=== PATIENT | male | born 1945 | race Caucasian/White ===

== ENCOUNTER → 2017-06-22 | Outpatient (CLI) | payer OTHER ==
[~2017-06-22] MED LIST: ALPR-411 PO; AMLO2.5T PO; AMPH20TA2 PO; AMPH30TA2 PO; AMT24 PO; ASPEC325 PO; DICL1GEL12 TOP; FENT100D10 TOP; GLC500 PO; GLIM4TAB2 PO; LINA1TAB PO; MULT-506 PO; OXYCODONE PO; PRLSR20 PO; RXC30 PO; [UNRECOGNIZED DRUG - OTHER] PO
[2017-06-22 16:01] LABS: BLOOD UREA NITROGEN 53 mg/dl (7-18); GLUCOSE 245 mg/dl (70-99)
[2017-06-22 16:02] LABS: ALT/SGPT 18 U/L (12-78); BUN/CREATININE RATIO 26.5 (10-20); CALCIUM 9.3 mg/dl (8.5-10.1); CARBON DIOXIDE 28 mmol/L (21-32); CHLORIDE 104 mmol/L (98-107); POTASSIUM 4.8 mmol/L (3.5-5.1); SODIUM 137 mmol/L (136-145)
[2017-06-22 16:04] LABS: ALB/GLOB RATIO 0.9 (0.9-2); ALKALINE PHOSPHATASE 116 U/L (45-117); AST/SGOT 14 U/L (15-37)
[2017-06-23 07:02] LABS: ESTIMATED AVERAGE GLUCOSE 171 mg/dl; HA1C FLAG Normal (Normal)
== END ==
LOC: C.LAB 13:56
PROVIDERS: ATTEND Family Medicine
DX: E11.21 Type 2 diabetes mellitus with diabetic nephropathy (principal)

== ENCOUNTER 2017-07-15 05:12 | Inpatient (IN) | payer OTHER ==
[2017-06-22 14:23] VITALS: BMI 25.0
--- NOTE | 2017-06-22 15:00 | PAT Medication Instructions ---
Service Date Jun 22, 2017. Current Home Medication List Alprazolam (Xanax), 0.5 MG PO TID PRN for Anxiety Amlodipine (Norvasc), 2.5 MG PO HS Amphetamine-Dextroamphetamine 20MG (Adderall 20MG), 20 MG PO QPM Amphetamine-Dextroamphetamine 30MG (Adderall 30MG), 30 MG PO QAM Diclofenac Sodium (Topical) (Voltaren 1% Top Gel), 1 DOSE TOP UD PRN for Pain Fentanyl (Duragesic), 1 PATCH TOP Q36 PRN for Pain Glimepiride (Glimepiride), 1 TAB PO QAM Linagliptin (Tradjenta), 1 TAB PO QAM Lubiprostone (Amitiza), 24 MCG PO BID Metformin HCl (Metformin HCl), 500 MG PO HS Multivitamin (Multivitamin), 1 TAB PO QAM Omeprazole (Prilosec), 40 MG PO QAM [Fiber Mix], 1 DOSE PO DAILY PRN for Constipation [Oxycodone], 10 MG PO Q6 PRN for Pain Medication Instructions For Your Scheduled Surgery - Hold the following medications 24 hours prior to surgery: Diclofenac Sodium (Topical) (Voltaren 1% Top Gel), 1 DOSE TOP UD PRN for Pain - Hold the following medications 48 hours prior to surgery: Metformin HCl (Metformin HCl), 500 MG PO HS - Hold the following medications the morning of surgery: [Fiber Mix], 1 DOSE PO DAILY PRN for Constipation Multivitamin (Multivitamin), 1 TAB PO QAM Lubiprostone (Amitiza), 24 MCG PO BID Lubiprostone (Amitiza), 24 MCG PO BID Glimepiride (Glimepiride), 1 TAB PO QAM Linagliptin (Tradjenta), 1 TAB PO QAM Amphetamine-Dextroamphetamine 30MG (Adderall 30MG), 30 MG PO QAM - Take the following medications the morning of surgery with a sip of water: Alprazolam (Xanax), 0.5 MG PO TID PRN for Anxiety (if needed) [Oxycodone], 10 MG PO Q6 PRN for Pain (okay to take up to 4 hours prior to surgery if needed) Omeprazole (Prilosec), 40 MG PO QAM Fentanyl (Duragesic), 1 PATCH TOP Q36 PRN for Pain (avoid patch placement of surgery site area) - Take the following medications as scheduled the night before surgery: [Fiber Mix], 1 DOSE PO DAILY PRN for Constipation [Oxycodone], 10 MG PO Q6 PRN for Pain (if needed) Alprazolam (Xanax), 0.5 MG PO TID PRN for Anxiety (if needed) Lubiprostone (Amitiza), 24 MCG PO BID Amphetamine-Dextroamphetamine 20MG (Adderall 20MG), 20 MG PO QPM Amlodipine (Norvasc), 2.5 MG PO HS If you have any questions please call us at [phone] or [phone] or [phone]
[2017-06-22 15:55] LABS: BASO % 0.8 %; BASO ABS # 0.04 K/uL (0-0.2); COMPLETE YES; EOS % 3.6 %; HEMATOCRIT 33.8 % (42-52); IG% 0.4 %; LYMPH ABS # 1.44 K/uL (1.2-3.4); MEAN CELL VOLUME 84.9 fL (80-100); MEAN CORPUSCULAR HEMOGLOBIN 28.9 pg (25-34); MEAN PLATELET VOLUME 10.2 fL (7.4-10.4); MONO % 7.8 %; NEUT % 58.4 %; PLATELET COUNT 177 K/uL (130-400); RED BLOOD COUNT 3.98 M/uL (4.7-6.1); WHITE BLOOD COUNT 4.97 K/uL (4.8-10.8)
[2017-06-22 16:00] LABS: URINE APPEARANCE CLEAR (CLEAR); URINE BILIRUBIN NEG (NEG); URINE COLOR YELLOW; URINE NITRITE NEG (NEG); URINE SPECIFIC GRAVITY 1.024 (1.000-1.030); UROBILINOGEN NEG (NEG)
[2017-06-22 16:01] LABS: MANUAL MICROSCOPIC REQUIRED? NO; REVIEW REQ? NO
[2017-06-22 16:02] LABS: INR 0.9 (0.9-1.1); PROTHROMBIN TIME (PATIENT) 9.7 SECONDS (9.0-12.0)
--- NOTE | 2017-06-22 16:03 | DIAGNOSTIC IMAGING REPORT ---
TWO VIEW CHEST CLINICAL HISTORY: Preoperative examination.. FINDINGS: PA and lateral chest radiographs are obtained. No prior studies are available for comparison at the time of dictation. The heart is top normal for projection. There is atherosclerotic calcification of the thoracic aorta. Nonspecific interstitial thickening is noted. No airspace consolidation or pleural effusion is identified. There is no pneumothorax. The skeletal structures are osteopenic. Degenerative change is seen throughout the thoracic spine. IMPRESSION: No active disease in the chest. Electronically signed by: Willian Combs M.D. 06/22/2017 4:01 PM Dictated Date/Time: 06/22/2017 4:00 PM
--- NOTE | 2017-07-14 20:07 | HISTORY & PHYSICAL EXAMINATION ---
DATE OF ADMISSION: 07/15/2017 CHIEF COMPLAINT: Primary osteoarthritis of the right knee. HISTORY OF PRESENT ILLNESS: Armando is a pleasant 72-year-old male, who has been dealing with a several year history of bilateral knee pain with the right worse than the left. He has had multiple injections without any relief. After failing years of conservative treatment, he has elected to proceed with a right total knee arthroplasty. PAST MEDICAL HISTORY: Significant for type 2 diabetes, hypertension, kidney disease and liver disease. PAST SURGICAL HISTORY: Significant for 2hernia repairs, left hand and wrist surgery. ALLERGIES: None. MEDICATIONS: Include metformin 500 mg daily, Amitiza 24 mcg twice a day, Tradjenta 5 mg daily, glimepiride 4 mg daily, omeprazole 40 mg daily, fentanyl 100 mcg per hour every 36 hours patch, alprazolam 0.5 mg as needed, oxycodone 15 mg every 4 hours as needed, Adderall 30 mg daily and amlodipine 2.5 mg daily. FAMILY HISTORY: Noncontributory. SOCIAL HISTORY: He is . He rarely drinks. Denies any tobacco or IV drug use. He does little activity. REVIEW OF SYSTEMS: He complains of severe right knee pain. All other pertinent review of systems are negative. PHYSICAL EXAMINATION: GENERAL: He is awake, alert and oriented x3. He is in no apparent distress. He is very pleasant. HEENT: Pupils are equal, round and reactive to light. Extraocular motions are intact. Oral mucosa is pink and moist. HEART: Regular rate per radial pulse. LUNGS: Astrid symmetrically bilaterally with no audible breath sounds. ABDOMEN: Soft, nontender and nondistended. MUSCULOSKELETAL: On physical examination of the right knee there is significant bony hypertrophy bilaterally. He has slight varus deformity. He has tenderness to palpation over the medial joint line and crepitus that palpates with flexion and extension of the knee. He has no ligamentous instability. IMAGING DATA: X-rays four views of the right knee do show advanced osteoarthritis with complete collapse of the joint space, osteophyte formation and subchondral cyst. IMPRESSION: Advanced osteoarthritis of the right knee. PLAN: We will proceed with a Biomet Vanguard right total knee arthroplasty. Postoperatively, he will be started on aspirin for DVT prophylaxis and kept in the hospital for postoperative medical management. CHANCE
[~2017-07-15] VITALS: Ht 177.8 cm; Wt 81.2 kg
[2017-07-15] VITALS (10 sets, daily range): BP systolic 118–170; BP diastolic 75–93; PULSE 60–75; TEMP 36.1–36.7; O2SAT 94–100; Ht 177.8 cm; Wt 81.2 kg
[~2017-07-15 05:12] MED LIST changes: -ASPEC325 PO; -RXC30 PO
[2017-07-15] MEDS ORDERED: FAMOTIDINE 20 MG TAB PO SCH (06:00)
[2017-07-15] MEDS ORDERED: ACETAMINOPHEN 500 MG TAB PO SCH (06:00)
[2017-07-15] MEDS ORDERED: GABAPENTIN 300 MG CAP PO SCH (06:00)
[2017-07-15] MEDS ORDERED: LACTATED RINGER'S 1000ML IV SCH (06:00)
[2017-07-15] MEDS ORDERED: LACTATED RINGER'S 1000ML 1,000 ML IV SCH (06:00)
[2017-07-15] MEDS ORDERED: CEFAZOLIN 2000 MG/60 ML D5W 60 ML IV SCH (06:00)
[2017-07-15] MEDS ORDERED: ROPIVACAINE 5MG/ML 30 ML 150 MG, BUPIVACAINE/EPINEPHR 0.5% MPF 30 ML, KETOROLAC TROMETH... INFIL SCH ×7 (06:00)
[2017-07-15] MEDS ORDERED: ORTHO JOINT ANESTHETIC ONE (06:29)
[2017-07-15] MEDS ORDERED: BACITRACIN 50000 UNIT VIAL ONE (06:30)
[2017-07-15] MEDS ORDERED: BUPIVACAINE 0.5 % 5 MG/1 ML PF 10ML VIAL ONE (06:31)
[2017-07-15] MEDS ORDERED: BUPIVACAINE 0.25% 30 ML VIAL ONE (06:32)
[2017-07-15] MEDS ORDERED: MIDAZOLAM HCL 1 MG/ML 2ML VIAL ONE ×2 (06:33→08:19)
[2017-07-15] MEDS ORDERED: FENTANYL CITRATE INJ 50 MCG/1 ML 2 ML VIAL ONE (06:33)
[2017-07-15] MEDS ORDERED: PROPOFOL IV EMULSION 10 MG/ML 20 ML VIAL IV ONE (06:33)
[2017-07-15] MEDS ORDERED: ONDANSETRON INJ 2 MG/ML 2 ML VIAL ONE (06:33)
[2017-07-15] MEDS ORDERED: LIDOCAINE HCL 2% 2 ML VIAL (20MG/ML) ONE (06:33)
--- NOTE | 2017-07-15 06:40 | History & Physical Bridge Note ---
H&P Re-Evaluation Bridge Note: I have examined the patient, reviewed the History & Physical and in the interval since the performance of the History & Physical I have noted the following changes of clinical significance: No changes noted
[2017-07-15] MEDS: TRANEXAMIC ACID INJ 1,000 MG in SODIUM CHLORIDE 0.9% 100ML 100 ML IV SCH ×2 (06:45→09:47)
[2017-07-15] MEDS ORDERED: AMPHETAMINE ASP/SULF/DEXTRAMPH 10 MG TAB PO SCH (07:00)
[2017-07-15] MEDS ORDERED: ONDANSETRON INJ 2 MG/ML 2 ML VIAL IV PRN ×2 (08:00→08:45)
[2017-07-15] MEDS ORDERED: EpHEDrine SULFATE INJ 50 MG/ML AMP IV PRN (08:00)
[2017-07-15] MEDS ORDERED: ATROPINE SULFATE 0.1 MG/ML 5ML SYR IV PRN (08:00)
--- NOTE | 2017-07-15 08:40 | [facility] Post Operative Brief Note ---
Immediate Operative Summary Operative Date Jul 15, 2017. Pre-Operative Diagnosis Advanced Osteoarthritis Right Knee Post-Operative Diagnosis Advanced Osteoarthritis Right Knee Procedure(s) Performed Right Total Knee Arthroplasty Surgeon Dr. Kelly Unhairer Surgeon(s) GAEL Lizarraga Estimated Blood Loss 20 ml Findings as above Specimens A. Right Knee Bone and Tissue Complication(s) None Disposition Recovery Room / PACU
[2017-07-15] MEDS ORDERED: METOCLOPRAMIDE HCL INJ 5 MG/ML 2 ML VIAL IV PRN (08:45)
[2017-07-15] MEDS ORDERED: DEXTROSE 50% 50 ML SYR IV PRN (08:45)
[2017-07-15] MEDS ORDERED: SILVER SULFADIAZINE 1% CR 50 GM JAR EXT PRN (08:45)
[2017-07-15] MEDS ORDERED: ALPRAZOLAM 0.5 MG TAB PO PRN (08:45)
[2017-07-15] MEDS ORDERED: BISACODYL 10 MG SUPP PR PRN (08:45)
[2017-07-15] MEDS ORDERED: DC ALL PREVIOUSLY ORDERED DIABETES MEDS ONE (08:45)
[2017-07-15] MEDS ORDERED: GLUCOSE 40% GEL 15 GM TUBE PO PRN (08:45)
[2017-07-15] MEDS ORDERED: SOD PHOSPHATE/SOD BIPHOSPHATE ENEMA 132 ML BTL PR PRN (08:45)
[2017-07-15] MEDS ORDERED: GLUCAGON FOR INJ 1 MG VIAL SQ PRN (08:45)
[2017-07-15] MEDS ORDERED: MAGNESIUM HYDROXIDE SUSP 30 ML UDC PO PRN (08:45)
[2017-07-15] MEDS ORDERED: GLUCOSE 10 TABS/TUBE PO PRN (08:45)
[2017-07-15] MEDS ORDERED: MULTIVITAMIN TAB PO SCH (09:00)
--- NOTE | 2017-07-15 09:28 | DIAGNOSTIC IMAGING REPORT ---
RIGHT KNEE 1 OR 2 VIEWS ROUTINE CLINICAL HISTORY: Right knee degenerative joint disease. Arthroplasty. COMPARISON: Knee radiographs June 07, 2017. FINDINGS: Alignment of the total right knee arthroplasty is anatomic. There is no fracture or unexpected radiopaque foreign body. Drains and skin goeff are present. IMPRESSION: Expected findings following total right knee arthroplasty. Electronically signed by: Glalo Aguilera M.D. 07/15/2017 9:26 AM Dictated Date/Time: 07/15/2017 9:26 AM
[2017-07-15] MEDS ORDERED: PHARMACY GLYCEMIC MGMT CONSULT PRN (09:40)
--- NOTE | 2017-07-15 09:41 | Anesthesiology Progress Note ---
Anesthesia Post Op Note Date & Time Jul 15, 2017 at 09:40 Vital Signs Pain Intensity: 0 Vital Signs Past 12 Hours Date Time Temp Pulse Resp B/P (MAP) Pulse Ox O2 Delivery O2 Flow Rate FiO2 07/15/17 09:25 36.6 60 14 125/71 100 Nasal Cannula 2 07/15/17 09:15 60 15 126/77 98 Nasal Cannula 2 07/15/17 09:05 61 15 126/75 98 Nasal Cannula 2 07/15/17 08:58 36.4 64 15 143/82 98 Nasal Cannula 2 07/15/17 05:50 36.7 74 18 170/93 95 Room Air Notes Mental Status: alert / awake / arousable, participated in evaluation Pt Amnestic to Procedure: Yes Nausea / Vomiting: adequately controlled Pain: adequately controlled Airway Patency, RR, SpO2: stable & adequate BP & HR: stable & adequate Hydration State: stable & adequate Neuraxial Anesthesia: was administered, sensory block is resolving Anesthetic Complications: no major complications apparent
--- NOTE | 2017-07-15 10:01 | OPERATIVE REPORT ---
DATE OF OPERATION: 07/15/2017 PREOPERATIVE DIAGNOSIS: Primary osteoarthritis of the right knee. POSTOPERATIVE DIAGNOSIS: Pain. PROCEDURE: Right total knee arthroplasty. SURGEON: Dr. Bryan Kelly. ADMINISTRATIVE ASSISTANT DATA ENTRY: Jose Gage PA-C, whose assistance was necessary for positioning the leg and helping with instrumentation. ANESTHESIA: Spinal with a right adductor nerve block. COMPLICATIONS: None. CONDITION: Stable to PACU. IMPLANTS USED: I used a Biomet Vanguard right total knee arthroplasty with a size 75 right femur, an 83 tibia, a 31 x 8 3-peg patella and a size 14 PS Plus polyethylene insert. All components were cemented with Palacos-G cement. INDICATIONS: Armando is a pleasant 72-year-old male who presented to my office with complaints of bilateral knee pain. X-rays showed bilateral primary osteoarthritis. After failing conservative treatment, he elected to undergo a right total knee arthroplasty. OPERATION AND FINDINGS: On 07/15/2017 he arrived at [facility] for the above procedure. He was seen in the preoperative holding area and the operative extremity was identified and signed. He was given a spinal anesthetic, a right adductor nerve block and an IV antibiotics. He was taken back to the operating room, laid on the table in supine position and given basic sedation. The right knee was then prepped and draped in sterile fashion. Time-out was done and the patient and operative extremity was properly identified. An anterior approach was made. Dissection was taken down to the extensor mechanism and a medial parapatellar arthrotomy was made. Because the patella was so large 10 mm was resected off the posterior aspect of the patella first. Osteophytes were removed. The patella measured to be a size 31 and 3 peg holes were placed. The medial retinaculum was released, the fat pad was left intact. The knee was flexed. A drill was sent down the center of the femoral canal. An intramedullary matthew was then placed and off that matthew a distal femoral cutting block was placed. Twelve mm was resected off the distal femur at 5 degrees of valgus. A posterior referencing guide was then used to measure the AP diameter of the femur and it measured to be a size 75. Two drill holes were placed in 3 degrees of external rotation and a 4-in-1 cutting block was placed. Anterior, posterior and chamfer cuts were then made. The box cutting guide was then placed and the box was resected for the posterior stabilizing component. The proximal tibia was then exposed. A drill was sent down the center of the tibial canal followed by an intramedullary matthew. Off that matthew a proximal tibial resection guide was placed and 2 mm was resected off the low medial side. Osteophytes were removed. The tibia measured to be a size 83 and the trial was placed in the appropriate rotation and it was punched. The posterior aspect of the knee was then opened up and osteophytes were removed posteriorly as well as any additional meniscus fragments as well as the ACL and PCL. Trial components were then placed. The knee was brought through a full range of motion and felt to be stable. The trials were then removed. The surrounding soft tissues were injected with 100 mL of an orthopedic pain control cocktail. The final components were then cemented in place with Palacos-G cement. Once cement had hardened, several different polyethylene inserts were trialed and a size 14 PS Plus seemed to give the best fit. The final poly was then snapped into place and the anterior bar was locked. The knee was then irrigated with 3 liters of normal saline solution with bacitracin. Tourniquet was deflated and hemostasis was controlled. Two drains were placed. The extensor mechanism was closed with #2 FiberWire suture in the superior medial aspect as well as Vicryl suture, both proximally and distally. Skin was closed with 2-0 Vicryl, 3-0 V-Loc and geoff. He was then placed in a soft compressive dressing and taken to the postanesthesia care unit in stable condition. He tolerated the procedure well. I attest to the content of the Intraoperative Record and any orders documented therein. Any exception s are noted below.
--- NOTE | 2017-07-15 10:17 | Pharmacy Progress Note ---
Glycemic Control Intl Consult Date of Service Jul 15, 2017. Scope Glycemic Pharmacist consulted by Dr Kelly on 07/15/17 for glycemic control and to write orders per [facility] inpatient glycemic control protocol Objective Weight (Kilograms): 81.20 Accuchecks BSG (last 24hrs): Test 07/15/17 05:31 Bedside Glucose 172 mg/dl (70-99) Recent Pertinent Medications Outpatient Anti-diabetic Regimen: * Glimepiride 4mg po daily * Linagliptin 5mg po daily * Metformin 500mg po HS * A1c = 7.6 % 06/22/17 Risk Factors for Insulin Resistance: * IVF: Pre and postop Ancef mixed in dextrose * Recent Surgery: s/p TKA * Diet: Type 2 DM Assessment & Plan ASSESSMENT: * 72 year old male type 2 diabetic, somewhat controlled with A1c slightly above goal, s/p TKA. * Pt is maintained on oral antidiabetic agents as an outpatient * Oral agents are not recommended for inpatient use d/t drug interactions, changing PO intake, and difficulty titrating for acute hyper/hypoglycemia. ADA recommends re-initiating outpatient oral agents 1-2 days prior to discharge if/ when appropriate if they were held on admission. * Will hold oral agents for admission and utilize SQ basal bolus insulin regimen which is the recommended regimen for inpatient glycemic control. * Will initiate weight based insulin dosing for insulin jaime patient and titrate based on BSG trends. * ADA & AACE recommend a goal blood sugar range 140-180 mg/dl for the majority of critically ill & non-critically ill patients. However, more stringent targets may be selected in individual cases. Will utilize more stringent goal of 110-140mg/dl based on patient age & comorbidities. Additionally, tighter glycemic control is warranted to facilitate wound/infection healing. PLAN FOR INPATIENT GLYCEMIC CONTROL: * Holding outpatient oral diabetes medications * Resume tomorrow based on PRP and diet * Lantus 10 units SQ x 1 today at 1700 for BSG > 140mg/dl * Correctional Insulin with NOVOLOG per scale ACHS or Q6hrs while NPO and overnight at 0200 * Goal Range: Low 110 mg/dL - High 140 mg/dL * Correction Factor: 25 mg/dL/unit * Nutritional / Prandial insulin per carb ratio of 1 unit per 10 grams CHO consumed * Please note that the plan above was derived based on current level of insulin resistance and hospital stress. These recommendations are appropriate for inpatient admission only. Plan of care upon discharge will need to be reassessed to avoid potential outpatient hypo/hyperglycemia. Thank you.
[2017-07-15] MEDS: DOCUSATE SODIUM 100 MG CAP PO SCH ×2 (10:46→21:28)
[2017-07-15] MEDS: MULTIVITAMIN TAB PO SCH (10:46)
[2017-07-15] MEDS: PANTOprazole SOD 40 MG TAB PO SCH (10:46)
[2017-07-15] MEDS: ASPIRIN 325 MG ECTAB PO SCH ×2 (10:46→21:28)
[2017-07-15] MEDS: SODIUM CHLORIDE 0.9% 1000ML 1,000 ML IV SCH ×2 (10:47→20:00)
[2017-07-15] MEDS: KETOROLAC TROMETHAMINE 15 MG/ML VIAL IV. SCH ×3 (13:40→23:47)
[2017-07-15] MEDS ORDERED: LANTUS PER UNIT CHARGE SQ ONE (13:45)
[2017-07-15] MEDS: INSULIN ASPART 100 UNITS/ML 3 ML PEN SC SCH ×3 (13:52→21:34)
[2017-07-15] MEDS: CEFAZOLIN IV 2,000 MG in DEXTROSE 5% 50ML 50 ML IV SCH ×2 (13:54→21:29)
[2017-07-15] MEDS: CHECK FENTANYL PATCH PLACEMENT SCH ×2 (15:26→23:47)
[2017-07-15] MEDS: AMPHETAMINE ASP/SULF/DEXTRAMPH 20 MG TAB PO SCH (15:27)
[2017-07-15] MEDS: OXYCODONE HCL IR 5 MG TAB (IMMEDIATE RELEASE) PO PRN ×2 (17:59→23:47)
[2017-07-15] MEDS: SENNA 8.6 MG TAB PO SCH (21:29)
[2017-07-15] MEDS: AMLODIPINE BESYLATE 5 MG TAB PO SCH (21:29)
--- NOTE | 2017-07-15 22:03 | PROGRESS NOTE ---
DATE: 07/15/2017 CHIEF COMPLAINT: Status post right total knee arthroplasty. PROGRESS: Armando was seen and examined at bedside. He is about 8 hours postop. He is not having any pain in his knee and he has no complaints. He is having difficulty with dorsiflexion of his right ankle. PHYSICAL EXAMINATION: RIGHT ANKLE: He has good strength with plantar flexion, but no dorsiflexion of his ankle. He can flex and extend his knee. He has full motion on the contralateral side. The dressing is clean and dry and the drain is to suction. X-rays postoperatively of the right knee showed the prosthesis to be in anatomical alignment without any evidence of fracture, dislocation or loosening. IMPRESSION: Status post right total knee arthroplasty. PLAN: We will wait for the spinal to wear off completely. I am a little bit concerned so we loosen the [place] wrap and flex his knee about 30 degrees. I talked to him about the foot drop at bedside. We will see how it does by tomorrow morning. He is on aspirin 325 mg twice a day for DVT prophylaxis. CHANCE
[2017-07-16] MEDS ORDERED: INSULIN ASPART 100 UNITS/ML 3 ML PEN SC ONE (02:00)
[2017-07-16 04:11] VITALS: BP 151/83; PULSE 71; TEMP 37.1; O2SAT 94
[2017-07-16] MEDS: OXYCODONE HCL IR 5 MG TAB (IMMEDIATE RELEASE) PO PRN (05:44)
[2017-07-16] MEDS: KETOROLAC TROMETHAMINE 15 MG/ML VIAL IV. SCH ×4 (05:52→21:01)
[2017-07-16] MEDS: SODIUM CHLORIDE 0.9% 1000ML 1,000 ML IV SCH (05:52)
[2017-07-16 06:14] LABS: HEMATOCRIT 28.8 % (42-52); MEAN CELL VOLUME 86.7 fL (80-100); MEAN CORPUSCULAR HEMOGLOBIN 28.6 pg (25-34); MEAN PLATELET VOLUME 10.6 fL (7.4-10.4); PLATELET COUNT 148 K/uL (130-400); RED BLOOD COUNT 3.32 M/uL (4.7-6.1); WHITE BLOOD COUNT 5.95 K/uL (4.8-10.8)
[2017-07-16] MEDS: MoRPHine SULFATE 2 MG/ML CARP IV PRN ×2 (06:28→17:31)
[2017-07-16 06:41] LABS: BUN/CREATININE RATIO 23.2 (10-20); CALCIUM 8.5 mg/dl (8.5-10.1); CREATININE 1.9 mg/dl (0.60-1.40); POTASSIUM 4.1 mmol/L (3.5-5.1)
[2017-07-16 07:15] VITALS: BP 149/89; PULSE 80; TEMP 36.9; O2SAT 98
[2017-07-16] MEDS ORDERED: NURSING VERBAL MED ORDER ONE ×2 (08:00→08:45)
[2017-07-16] MEDS: FENTANYL 100 MCG/HR TDSY TD SCH (08:02)
[2017-07-16] MEDS: CHECK FENTANYL PATCH PLACEMENT SCH ×2 (08:03→16:20)
[2017-07-16] MEDS: AMPHETAMINE ASP/SULF/DEXTRAMPH 10 MG TAB PO SCH (08:11)
[2017-07-16] MEDS ORDERED: MoRPHine SULFATE 4 MG/ML 1 ML CARP\\VIAL IV ONE (08:15)
[2017-07-16] MEDS: FENTANYL PATCH REMOVE & WASTE SCH (08:38)
[2017-07-16] MEDS: ASPIRIN 325 MG ECTAB PO SCH ×2 (08:39→21:02)
[2017-07-16] MEDS: MULTIVITAMIN TAB PO SCH (08:39)
[2017-07-16] MEDS: DOCUSATE SODIUM 100 MG CAP PO SCH ×2 (08:39→21:01)
[2017-07-16] MEDS: PANTOprazole SOD 40 MG TAB PO SCH (08:39)
--- NOTE | 2017-07-16 08:51 | Discharge Instructions ---
Discharge Instructions Date of Service Jul 16, 2017. Admission Reason for Admission: Right Knee Degenerative Joint Disease Discharge Discharge Diagnosis / Problem: Right Total Knee Discharge Goals Goal(s): Decrease discomfort, Improve function Activity Recommendations Activity Limitations: as noted below . Instructions / Follow-Up Instructions / Follow-Up Activity and Therapy Recommendations: * If you are using [facility] then Physical Therapy will be provided until they feel you are ready to start Outpatient Physical Therapy. If you are not using a Home Health agency then Outpatient Physical Therapy should start about 3-5 days from your day of surgery. Therapy will last about 6-10 weeks * It is important not to put a pillow under your knee when you are relaxing or sleeping. It is just as important to make sure you are getting your knee perfectly straight as it is to regain your knee bend. * You were shown a series of exercises in the hospital. Do these exercises three times each day including the exercises you were shown in physical therapy. * Get up and walk several times each day. For the first four weeks, try not to stand or walk for more than one hour at a time. If you do stand or walk for more than one hour, you will not hurt anything, but your leg will likely swell. * As you feel comfortable, you may change from the walker or crutches to a cane and then to independent walking. Medications: * Narcotic You will likely be sent home from the hospital with a prescription for the narcotic pain medication that worked best throughout your stay. * Aspirin Most patients will be required to take Aspirin 325mg twice a day for 6 weeks after surgery. This is obtained [id number] and a prescription is not necessary. * Other medications may be prescribed for specific circumstances. If you have any questions, please call the office at . * Resume previous home medications unless otherwise instructed TEDs/Elastic Stockings: The white elastic stockings help limit swelling and prevent blood clots from forming in your legs.~ The more you wear them, the more they work. Wear them for six weeks. Showering: You may shower 5 days from the day of surgery. Let the soapy shower water run over the geoff. Do not scrub or soak the incision. Things To Watch For: * Drainage from the incision site that occurs more than one week after your surgery. * Increased redness at the incision site. * Fever above 102 degrees Fahrenheit. * Unusual chest pain or shortness of breath. * Call [facility] at with any of the above problems Follow-Up Visit: Follow-up with Dr. Kelly 2-3 weeks after your day of surgery. An appointment was probably scheduled when you signed-up for surgery in the office. If you have any questions call Office Instructions: More detailed instructions as well as Frequently Asked Questions were provided in a folder by our office when you signed-up for surgery. Please review these instructions when you get home. If you have any further questions or concerns, please feel free to call the office at [phone] Current Hospital Diet Patient's current hospital diet: Diabetes Type 2 Diet Discharge Diet Recommended Diet: Diabetes Type 2 Diet Procedures Procedures Performed: Right Total Knee Arthroplasty Pending Studies Studies pending at discharge: no Laboratory Results Hemoglobin A1c Test 06/22/17 15:11 Range/Units Estimated Average Glucose 171 mg/dl Hemoglobin A1c 7.6 H 4.5-5.6 % Medical Emergencies . Who to Call and When: Medical Emergencies: If at any time you feel your situation is an emergency, please call 911 immediately. . Non-Emergent Contact Non-Emergency issues call your: Surgeon Call Non-Emergent contact if: wound has increased drainage, wound has increased redness . "Provider Documentation" section prepared by Bryan Kelly. . VTE Core Measure Inpt VTE Proph given/why not?: Other Anticoagulation (Aspirin 325 twice a day for 6 weeks)
[2017-07-16] MEDS: INSULIN ASPART 100 UNITS/ML 3 ML PEN SC SCH ×4 (09:20→21:07)
--- NOTE | 2017-07-16 09:31 | PROGRESS NOTE ---
DATE: 07/16/2017 DATE: 07/16/2017 CHIEF COMPLAINT: Status post right total knee arthroplasty postop day #1. PROGRESS: Armando was seen and examined at bedside today. He was sitting up on the edge of the bed and he was having a lot of pain. He is currently on a fentanyl patch and chronically takes 15 mg of oxycodone. He did not take his Toradol earlier this morning. His biggest complaint is the pain. Unfortunately, he has regained dorsiflexion of his ankle and is not having any neurologic symptoms. PHYSICAL EXAMINATION: EXTREMITIES: He is sitting with his knee flexed at 90 degrees on the edge of the bed. He seems to be in a lot of pain. He is able to dorsiflex and plantar flex his right ankle without difficulty. Sensation is intact. NECK: The dressing had been loosened and the drain is still to suction. LABORATORY DATA: He has an H&H today of 9.5 and 28.8. His glucose is 131. His vital signs are relatively stable on room air. He is slightly hypertensive. His wound VAC has put out 125 mL. He is voiding on his own. X-rays postoperatively of the right knee show the prosthesis to be in anatomic alignment without any evidence of fracture, dislocation or loosening. IMPRESSION: Status post right total knee arthroplasty postop day #1. PLAN: Will work on getting his pain controlled. He has taken 30 mg of oxycodone in the past and said that he feels that that will help. I am going to change his 15 mg of oxycodone to 30 mg. I also am going to start him on Toradol 15 mg. I think that will help a lot to ease some of his pain. His creatinine level is 1.9. Will check a PRP again tomorrow. We will not use any IV Tylenol because of his poor liver function. We will keep morphine on as backup as well. He will get physical therapy today. I will see him tomorrow. If everything looks good tomorrow and his pain is better controlled, we will possibly discharge him to home.
[2017-07-16] MEDS ORDERED: FENTANYL 100 MCG/HR TDSY TD SCH (10:00)
[2017-07-16] MEDS ORDERED: FENTANYL PATCH REMOVE & WASTE SCH (10:00)
--- NOTE | 2017-07-16 13:53 | Pharmacy Progress Note ---
Glycemic Control Progress Note Date of Service Jul 16, 2017. Scope Glycemic Pharmacist consulted for glycemic control to write orders per formerly [facility] inpatient glycemic control protocol. Objective Accuchecks BSG (last 24hrs): Test 07/15/17 17:01 07/15/17 20:25 07/16/17 01:54 07/16/17 05:31 Bedside Glucose 201 mg/dl (70-99) 191 mg/dl (70-99) 154 mg/dl (70-99) Random Glucose 136 mg/dl (70-99) Test 07/16/17 08:28 07/16/17 12:05 Bedside Glucose 131 mg/dl (70-99) 155 mg/dl (70-99) Recent Pertinent Medications Outpatient Anti-diabetic Regimen: * Glimepiride 4mg po daily * Linagliptin 5mg po daily * Metformin 500mg po HS * A1c = 7.6 % 06/22/17 Risk Factors for Insulin Resistance: * Recent Surgery: POD 1 TKA * Diet: Type 2 DM Assessment & Plan ASSESSMENT: 07/16/17 * Blood sugars at goal, pt Scr 1.9mg/dl - but this is patient's baseline * OK to restart metformin (pt on lowest dose and on prior to admission) * OK to restart glimepiride * Tradjenta non-formulary - restart upon discharge * Pt likely to be discharged to home tomorrow 07/15/17 * 72 year old male type 2 diabetic, somewhat controlled with A1c slightly above goal, s/p TKA. * Pt is maintained on oral antidiabetic agents as an outpatient * Oral agents are not recommended for inpatient use d/t drug interactions, changing PO intake, and difficulty titrating for acute hyper/hypoglycemia. ADA recommends re-initiating outpatient oral agents 1-2 days prior to discharge if/ when appropriate if they were held on admission. * Will hold oral agents for admission and utilize SQ basal bolus insulin regimen which is the recommended regimen for inpatient glycemic control. * Will initiate weight based insulin dosing for insulin jaime patient and titrate based on BSG trends. * ADA & AACE recommend a goal blood sugar range 140-180 mg/dl for the majority of critically ill & non-critically ill patients. However, more stringent targets may be selected in individual cases. Will utilize more stringent goal of 110-140mg/dl based on patient age & comorbidities. Additionally, tighter glycemic control is warranted to facilitate wound/infection healing. PLAN FOR INPATIENT GLYCEMIC CONTROL: * Resume: Metformin 500mg PO daily with dinner Glimepiride 4mg PO daily * Correctional Insulin with NOVOLOG per scale ACHS or Q6hrs while NPO * Goal Range: Low 110 mg/dL - High 140 mg/dL * Correction Factor: 25 mg/dL/unit * Discontinue Nutritional / Prandial insulin per carb ratio DISCHARGE RECOMMENDATIONS: * A1c = 7.6%, 72 year old - at goal per Elements of Diabetes Care Score, no changes at this time continue outpatient oral treatment * Please note that the plan above was derived based on current level of insulin resistance and hospital stress. These recommendations are appropriate for inpatient admission only. Plan of care upon discharge will need to be reassessed to avoid potential outpatient hypo/hyperglycemia. Thank you.
[2017-07-16 15:36] VITALS: BP 154/78; PULSE 75; TEMP 36.9; O2SAT 99
[2017-07-16 16:00] VITALS: O2SAT 99
[2017-07-16] MEDS: AMPHETAMINE ASP/SULF/DEXTRAMPH 20 MG TAB PO SCH (16:00)
[2017-07-16] MEDS: OXYCODONE HCL IR 30 MG TAB (IMMEDIATE RELEASE) PO PRN (16:25)
[2017-07-16] MEDS: METFORMIN HCL 500 MG TAB PO SCH (17:28)
[2017-07-16] MEDS: GLIMEPIRIDE 2 MG TAB PO SCH (17:28)
[2017-07-16] MEDS: AMLODIPINE BESYLATE 5 MG TAB PO SCH (21:02)
[2017-07-16] MEDS: SENNA 8.6 MG TAB PO SCH (21:04)
[2017-07-16 23:36] VITALS: BP 150/84; PULSE 71; TEMP 36.8; O2SAT 95
[2017-07-17] MEDS: CHECK FENTANYL PATCH PLACEMENT SCH ×3 (00:06→16:23)
[2017-07-17] MEDS: OXYCODONE HCL IR 30 MG TAB (IMMEDIATE RELEASE) PO PRN ×3 (01:20→16:42)
[2017-07-17] MEDS: KETOROLAC TROMETHAMINE 15 MG/ML VIAL IV. SCH ×2 (03:29→09:09)
[2017-07-17 06:02] LABS: HEMATOCRIT 26.4 % (42-52)
[2017-07-17] MEDS: AMPHETAMINE ASP/SULF/DEXTRAMPH 10 MG TAB PO SCH (06:32)
[2017-07-17 06:42] LABS: BUN/CREATININE RATIO 19.6 (10-20); CALCIUM 8.6 mg/dl (8.5-10.1); CREATININE 1.4 mg/dl (0.60-1.40); POTASSIUM 3.8 mmol/L (3.5-5.1)
[2017-07-17 07:10] VITALS: BP 150/84; PULSE 72; TEMP 37.6; O2SAT 95
[2017-07-17] MEDS: INSULIN ASPART 100 UNITS/ML 3 ML PEN SC SCH ×4 (08:00→22:14)
[2017-07-17] MEDS ORDERED: RXC30 PO (09:09)
[2017-07-17] MEDS: DOCUSATE SODIUM 100 MG CAP PO SCH ×2 (09:09→22:07)
[2017-07-17] MEDS: PANTOprazole SOD 40 MG TAB PO SCH (09:09)
[2017-07-17] MEDS: GLIMEPIRIDE 2 MG TAB PO SCH (09:09)
[2017-07-17] MEDS ORDERED: ASPEC325 PO (09:09)
[2017-07-17] MEDS: MULTIVITAMIN TAB PO SCH (09:10)
[2017-07-17] MEDS: ASPIRIN 325 MG ECTAB PO SCH ×2 (09:10→22:06)
--- NOTE | 2017-07-17 09:45 | PROGRESS NOTE ---
DATE: 07/17/2017 CHIEF COMPLAINT: Status post right total knee arthroplasty, postop day #2. PROGRESS: Armando was seen and examined at bedside today. Unfortunately, he was still having a lot of pain in his right knee. It is a little better than it was yesterday. He was not able to participate well with physical therapy. He has no other complaints. PHYSICAL EXAMINATION: RIGHT KNEE: He is sitting with his knee flexed at about 20 degrees. I tried again to straighten it out, but he cannot because of the pain. He has active dorsiflexion and plantarflexion of his right ankle. Sensation is intact throughout. LABORATORY DATA: He has an H&H this morning of 8.9 and 26.4. His creatinine is doing fine at 1.4. His glucose is 140. His vital signs are all stable on room air. He is voiding on his own and has not had a bowel movement yet. IMPRESSION: Status post right total knee arthroplasty, postop day #2. PLAN: We will follow his creatinine closely and we will keep him on Toradol 15 mg to help with the pain. I increased his oxycodone from 15 to 30 mg yesterday. He will continue his fentanyl patch as he was on preoperatively and we will continue the IV morphine for breakthrough pain. We encouraged him to work better today with physical therapy and he noticed that the pain will resolve with time. He is on aspirin 325 mg twice a day for DVT prophylaxis. He is looking to go to [facility] tomorrow.
[2017-07-17 14:55] VITALS: BP 163/67; PULSE 74; TEMP 36.8; O2SAT 96
[2017-07-17] MEDS: AMPHETAMINE ASP/SULF/DEXTRAMPH 20 MG TAB PO SCH (16:00)
[2017-07-17] MEDS: METFORMIN HCL 500 MG TAB PO SCH (18:09)
[2017-07-17] MEDS: MoRPHine SULFATE 2 MG/ML CARP IV PRN (18:16)
[2017-07-17] MEDS: FENTANYL PATCH REMOVE & WASTE SCH (19:49)
[2017-07-17] MEDS: FENTANYL 100 MCG/HR TDSY TD SCH (19:50)
[2017-07-17] MEDS: SENNA 8.6 MG TAB PO SCH (22:07)
[2017-07-17] MEDS: AMLODIPINE BESYLATE 5 MG TAB PO SCH (22:08)
[2017-07-17 22:57] VITALS: BP 144/86; PULSE 76; TEMP 37.4; O2SAT 95
[2017-07-18] MEDS: OXYCODONE HCL IR 30 MG TAB (IMMEDIATE RELEASE) PO PRN ×3 (00:01→14:30)
[2017-07-18] MEDS: CHECK FENTANYL PATCH PLACEMENT SCH ×3 (00:02→15:54)
[2017-07-18] MEDS: AMPHETAMINE ASP/SULF/DEXTRAMPH 10 MG TAB PO SCH (06:30)
[2017-07-18 06:49] VITALS: BP 145/85; PULSE 82; TEMP 37.4; O2SAT 100
[2017-07-18] MEDS: PANTOprazole SOD 40 MG TAB PO SCH (08:26)
[2017-07-18] MEDS: ASPIRIN 325 MG ECTAB PO SCH (08:26)
[2017-07-18] MEDS: DOCUSATE SODIUM 100 MG CAP PO SCH (08:26)
[2017-07-18] MEDS: MULTIVITAMIN TAB PO SCH (08:26)
[2017-07-18] MEDS: GLIMEPIRIDE 2 MG TAB PO SCH (08:26)
[2017-07-18] MEDS ORDERED: LANTUS PER UNIT CHARGE SQ ONE (09:00)
[2017-07-18] MEDS: INSULIN ASPART 100 UNITS/ML 3 ML PEN SC SCH ×2 (09:09→13:11)
--- NOTE | 2017-07-18 10:03 | Anesthesiology Progress Note ---
Anesthesia Post Op Note Date & Time Jul 18, 2017 at 10:03 Vital Signs Vital Signs Past 12 Hours Date Time Temp Pulse Resp B/P (MAP) Pulse Ox O2 Delivery O2 Flow Rate FiO2 07/18/17 08:08 Room Air 07/18/17 06:49 37.4 82 19 145/85 (105) 100 Room Air 07/18/17 00:00 Room Air 07/17/17 22:57 37.4 76 16 144/86 (105) 95 Room Air Notes Mental Status: alert / awake / arousable, participated in evaluation Pt Amnestic to Procedure: Yes Nausea / Vomiting: adequately controlled Pain: adequately controlled Airway Patency, RR, SpO2: stable & adequate BP & HR: stable & adequate Hydration State: stable & adequate Neuraxial Anesthesia: sensory block resolved Anesthetic Complications: no major complications apparent
[2017-07-18] MEDS: MoRPHine SULFATE 2 MG/ML CARP IV PRN (12:39)
--- NOTE | 2017-07-18 13:19 | PROGRESS NOTE ---
DATE: 07/18/2017 CHIEF COMPLAINT: Status post right total knee arthroplasty postop day #3. PROGRESS: Armando was seen and examined at bedside today. Overall, he is improving. He says he was able to walk around the nurses' station a couple times yesterday. His pain is better controlled. He has no new complaints. PHYSICAL EXAMINATION: His right knee, the dressing has been changed and drain has been pulled. He is lying with his knee flexed about 15 degrees and I advised him against that. He has active dorsiflexion and plantarflexion of his right ankle and sensation is intact throughout. IMPRESSION: Status post right total knee arthroplasty postop day #3. PLAN: At this point, he continues to improve. He is orthopedically stable for discharge to [facility] when a bed is available. He is on aspirin 325 mg twice a day for DVT prophylaxis and he will take oxycodone 30 mg as needed for pain. I will see him in the office in 2 weeks.
[2017-07-18 13:31] VITALS: BP 145/85; PULSE 82; TEMP 37.4; O2SAT 100
[2017-07-18 15:48] VITALS: BP 116/68
[2017-07-18] MEDS: AMPHETAMINE ASP/SULF/DEXTRAMPH 20 MG TAB PO SCH (16:07)
--- NOTE | 2017-07-20 01:14 | DISCHARGE SUMMARY ---
CHIEF COMPLAINT: Primary osteoarthritis of the right knee. PROCEDURE: Right total knee arthroplasty on 07/15/[address] Bryan Kelly. DISCHARGE INSTRUCTIONS: 1. Aspirin 325 mg twice a day for 6 weeks. 2. Oxycodone 30 mg every 6 hours as needed for pain. 3. Xanax 0.5 mg as needed. 4. Norvasc 2.5 mg at night. 5. Adderall 20 mg in the evening. 6. Adderall 30 mg in the morning. 7. Voltaren gel for pain. 8. Fentanyl patch 100 mcg every 36 hours as needed for pain. 9. Glimepiride 4 mg daily. 10. Tradjenta 5 mg daily. 11. Amitiza 24 mcg twice a day. 12. Metformin 500 mg at night. 13. Daily multivitamin. 14. Prilosec 40 mg daily. 15. Weightbear as tolerated. 16. Follow up with Dr. Kelly in 2 weeks. 17. Call the office of Dr. Kelly with any questions or concerns. HOSPITAL COURSE: Armando is a 72-year-old male who presented to my office with complaints of severe right knee pain. X-rays and clinical examination were diagnostic for primary osteoarthritis of the right knee. After failing conservative treatment, he elected to undergo a right total knee arthroplasty. On 07/15/2017, he arrived at [facility] and underwent a right knee replacement without complications. He had a spinal anesthetic and a right adductor nerve block and basic sedation. Postoperatively, he was started on aspirin 325 mg twice a day and discharged to general orthopedic floor. About 6 hours after the procedure, I saw him at bedside. His spinal seemed to have worn off, but he did have a foot drop. I loosened the bandaging and his flexed his knee about 30 degrees. On postop day #1, he was having a lot of discomfort in the knee. Fortunately, for foot drop had resolved. I checked his creatinine closely and had him take Toradol 50 mg and also up the oxycodone from 15 to 30 mg, which he has taken in the past. He did not work well with physical therapy on day #1 because of pain. His H&H, however, was stable at 9.5 and 28.8. On postop day #2, the dressings were changed and drain was pulled. He is still having a lot of pain in the knee, but it was better than the day before. He was able to ambulate better with physical therapy. His H&H was 8.9 and 26.4 and his creatinine was stable. On postop day #3, his pain was improved. He was working better with physical therapy and he was subsequently discharged to [facility] with the above instructions. [facility]
== END 2017-07-18 16:30 | DRG 470 ==
LOC: C.ACU 05:12 → C.3E 06:00 → ENRESERV 09:19
PROVIDERS: ADMIT Orthopaedic Surgery; ATTEND Orthopaedic Surgery
PROC: 0SRC0J9 Replacement of Right Knee Joint with Synthetic Substitute, Cemented, Open Approach (ICD-10-PCS; principal; 2017-07-15 07:00)
DX: M17.11 Unilateral primary osteoarthritis, right knee (principal); M21.161 Varus deformity, not elsewhere classified, right knee; G89.18 Other acute postprocedural pain; I12.9 Hypertensive chronic kidney disease with stage 1 through stage 4 chronic kidney disease, or unspecified chronic kidney disease; E11.22 Type 2 diabetes mellitus with diabetic chronic kidney disease; N18.3 Chronic kidney disease, stage 3 (moderate); K76.9 Liver disease, unspecified; K21.9 Gastro-esophageal reflux disease without esophagitis; F32.9 Major depressive disorder, single episode, unspecified; F90.9 Attention-deficit hyperactivity disorder, unspecified type; Z79.84 Long term (current) use of oral hypoglycemic drugs; Z79.891 Long term (current) use of opiate analgesic; Z79.899 Other long term (current) drug therapy